=== PATIENT | male | born 1985 | race Caucasian/White ===

== ENCOUNTER 2016-06-28 10:07 | Emergency (ER) ==
[2016-06-28] MEDS ORDERED: XYLOCAINE-MPF 1% INJ ONE (11:11)
[2016-06-28] MEDS ORDERED: DECADRON IM ONE (11:11)
[2016-06-28] MEDS ORDERED: ROCEPHIN IM ONE (11:11)
--- NOTE | 2016-06-28 11:14 | PROVIDER DOCUMENTATION ---
HPI-EENT General - General Chief Complaint: Cold Symptoms Stated Complaint: FEVER/CONGESTION/WEAKNESS Time Seen by Provider: 06/28/16 11:06 Source: patient Allergies/Adverse Reactions: Patient Allergies Allergy/AdvReac Type Severity Reaction Status Date / Time Penicillins AdvReac Unknown Verified 06/28/16 10:14 Home Medications: Home Medication List Medication Instructions Recorded Confirmed Last Taken Type Methylprednisolone [Medrol Dosepak] 4 mg PO DIRECTED #1 package 06/28/16 Unknown Rx Ondansetron Odt [Zofran 4 mg Odt] 4 mg PO Q6H PRN PRN #20 tablet 06/28/16 Unknown Rx Sulfamethoxazole/Trimethoprim 1 each PO BID #20 tablet 06/28/16 Unknown Rx [Bactrim Ds Tablet] - History of Present Illness-EENT General Nature of Presenting Problem: 31 yom with c/o body aches, fever, sinus congestion, nausea, and vomiting for 1 week. Symptoms continue to get worse instead of better. Pt has headache with Left maxillary sinus pressure and tenderness on palpation. EENT Location: reports: throat Quality of Pain: reports: burning Severity: reports: mild Onset/Duration: reports: 1 week ago Timing: reports: still present, getting worse Prearrival Treatment: Initiated over the counter meds Associated Symptoms: reports: cough, facial pain/swelling, sore throat Locality of Occurance: Home Similar Symptoms Previously?: No Recently seen or treated by another doctor?: No - Eyes Eye Problem Symptoms: denies: eye pain, decrease vision, blurred vision, double vision, curtain, other, burning, itching, sensitivity to light, redness, matting , orbital swelling, eyelid swelling, foreign body sensation Eye Problem Context: denies: none, foreign body, chemical exposure, direct trauma, exposure to welding arc, exposure to [place], sick contact with pink eye, penetration injury, projectile injury, other - Ears Ear Problem Symptoms: denies: none, earache, hearing loss, ringing in ears, roaring in ears, discharge, other - Throat/Dental Throat/Dental Problem Symptoms: reports: sore throat Recently seen a dentist or have an appointment?: No Review of Systems - Adult - REVIEW OF SYSTEMS - ADULT Constitutional: reports: see HPI Eyes: reports: no symptoms reported Ears, Nose, Mouth & Throat: reports: see HPI, sinus problem, throat pain Cardiovascular: reports: no symptoms reported. denies: see HPI, chest pain, edema, heart murmur, irregular heart rate, orthopnea, palpitations, poor circulation, PND, syncope, other Respiratory: reports: no symptoms reported. denies: see HPI, chronic cough, cough, dyspnea on exertion, excessive sputum production, hemoptysis, pleurisy, shortness of breath, wheezing, other Gastrointestinal: reports: no symptoms reported. denies: see HPI, abdominal pain, hematemesis, constipation, diarrhea, difficulty swallowing, frequent heartburn, nausea, poor appetite, rectal bleeding, vomiting, other Genitourinary: reports: no symptoms reported. denies: see HPI, dysuria, discharge, frequency, flank pain, frequent UTI's, hematuria, hesitency, incontinence, urinary retention, urgency, other Musculoskeletal: reports: no symptoms reported. denies: see HPI, bone pain, back pain, frequent leg cramps, joint pain, joint swelling, muscle aches, muscle weakness, neck pain, other Integumentary: reports: no symptoms reported. denies: see HPI, hives, hair loss , itching, mole changes, nail changes, rash, skin sores/ulcer, skin thickening, other All Other Systems: Reviewed and Negative Past History - Adult - PAST MEDICAL HISTORY-ADULT Review of Records: reports: Old Records Reviewed, Nursing Assessment Review, Medications Reviewed, Social history reviewed & non-contributory. Physical Exam- EENT - Physical Exam EENT Initial Vital Signs Reviewed: Yes General Appearance: appears well, alert, no apparent distress Eye Exam: bilateral eye: normal inspection, PERRL Ear Exam: bilateral ear: auricle normal, canal normal, TM normal Nasal Exam: discharge, sinus tenderness Throat Exam: pharynx swelling, pharynx tenderness Neck: non-tender, full range of motion, supple, normal inspection. negative: Brudzinski's sign, carotid bruit, C-spine tenderness, limited range of motion, lymphadenopathy, meningismus, trachial deviation, tender lateral, tender midline , thyromegaly, other Respiratory: chest non-tender, lungs clear, normal breath sounds, no pleuratic chest pain, no respiratory distress, no accessory muscle use Cardiovascular: normal peripheral pulses, regular rate, rhythm, no edema, no gallop, no JVD, no murmur. negative: JVD, bradycardia, tachycardia, diastolic murmur, systolic murmur, gallop/S3, gallop/S4, extra beats, friction rub, irregularly irregular, PMI displaced laterally, other Abdominal Exam: normal bowel sounds, non tender, soft, no organomegaly, no pulsatile mass Lymphatic: no adenopathy Back Exam: normal inspection, no CVA tenderness, no vertebral tenderness Extremity: normal range of motion, non-tender, normal gait, normal inspection, no pedal edema, no calf tenderness, normal capillary refill Progress - PLAN OF CARE/RESULTS Progress/Plan/Lab Results: Vital Signs Temp Pulse Resp BP Pulse Ox 06/28/16 11:19 98 F 80 16 132/87 99 06/28/16 10:11 98.4 F 91 H 18 124/84 98 Penicillins Adverse Reaction (Verified 06/28/16 10:14) Unknown Methylprednisolone [Medrol Dosepak] 4 mg PO DIRECTED #1 package 06/28/16 Ondansetron Odt [Zofran 4 mg Odt] 4 mg PO Q6H PRN PRN #20 tablet 06/28/16 Sulfamethoxazole/Trimethoprim [Bactrim Ds Tablet] 1 each PO BID #20 tablet 06/28 Laboratory 06/28/16 10:15 Influenza A (Rapid) NEGATIVE Influenza B (Rapid) NEGATIVE Departure - Departure Time of Disposition Order: 11:10 DIAGNOSIS: Sinusitis Qualifiers: Sinusitis location: maxillary Chronicity: acute Recurrence: not specified as recurrent Qualified Code(s): J01.00 - Acute maxillary sinusitis, unspecified Disposition: HOME 01 Certified Medical Emergency: Emergent Condition: Stable Additional Instructions: ED Follow Up Instructions: You have been treated by a care provider in the Emergency Department. These instructions are being provided to you so you can have an understanding of how to care for yourself upon discharge. Upon discharge from the Emergency Department, you are responsible for making arrangements for follow-up care by a physician of your choice. Take all prescribed medications as directed. Return to the Emergency Department immediately for any new or worsening symptoms. You may call the Physician Referral phone number at [phone] to obtain a list of Physicians who are taking new patients. Prescriptions: Sulfamethoxazole/Trimethoprim [Bactrim Ds Tablet] 1 each PO BID #20 tablet Methylprednisolone [Medrol Dosepak] 4 mg PO DIRECTED #1 package Ondansetron Odt [Zofran 4 mg Odt] 4 mg PO Q6H PRN PRN #20 tablet PRN Reason: Nausea Referrals: None,PCP [Primary Care Provider] - Braxton Sharma MD [STAFF PHYSICIAN] - Forms: Return to School/Parent Work Instructions: Ondansetron tablets, Sinusitis, [id number], Methylprednisolone tablets, Sulfamethoxazole; Trimethoprim, [id number] tablets Attestation - Physician/ EZRA Attestation Patient care was provided by Advanced Practice Provider:: Yes Advanced Practice Provider:: Raudel Demarco Advanced Practice Provider documentation review:: The Mid-level provider documentation, treatment plan and medical decision making was reviewed by the physician who agrees with all treatment and medical decision making by the MLP.
[2016-06-28 11:19] VITALS: BP 132/87
== END 2016-06-28 11:41 | disposition home or self-care (01) ==
LOC: P.ED 10:07
DX: J01.00 Acute maxillary sinusitis, unspecified (principal); R50.9 Fever, unspecified; R09.81 Nasal congestion; R53.1 Weakness; R52 Pain, unspecified; R11.2 Nausea with vomiting, unspecified; R51 Headache; J34.89 Other specified disorders of nose and nasal sinuses; R05 Cough; J02.9 Acute pharyngitis, unspecified
CPT/HCPCS: 87804; 96372; J0696; J1100